=== PATIENT | female | born 1980 | race Caucasian/White ===

== ENCOUNTER 2017-05-09 13:44 | Emergency (ER) | payer MEDICAID ==
[2017-05-09 13:54] VITALS: TEMP 98.9; O2SAT 100
[2017-05-09] MEDS ORDERED: Sodium Chloride 0.9% 1,000 ML IV ONE ×2 (14:17→16:38)
--- NOTE | 2017-05-09 14:22 | C.PDOC ---
History Of Present Illness Patient is a 36 y/o F presenting with 4 day history of suprapubic cramping that started with her menses. She reports that she takes advil with relief of the pain but the pain reoccurs within 4 hours. Denies fever, nausea/vomiting, chest pain, shortness of breath, hematuria, other vaginal discharge, constipation or diarrhea. Reports occasional dysuria. Time Seen by Provider: 05/09/17 14:02 Chief Complaint (Nursing): Abdominal Pain Past Medical History Vital Signs: Last Vital Signs Temp 98.9 F 05/09/17 13:50 Pulse 85 05/09/17 18:03 Resp 16 05/09/17 18:03 BP 108/73 05/09/17 18:03 Pulse Ox 100 05/09/17 18:19 Family History: States: No Known Family Hx - Social History Hx Alcohol Use: No Hx Substance Use: No Review Of Systems Constitutional: Negative for: Fever, Chills Cardiovascular: Negative for: Chest Pain, Palpitations, Edema, Light Headedness Respiratory: Negative for: Cough, Shortness of Breath, SOB with Excertion, Wheezing Gastrointestinal: Negative for: Nausea, Vomiting, Diarrhea, Constipation Genitourinary: Positive for: Dysuria, Vaginal Bleeding, Pelvic Pain. Negative for: Frequency, Incontinence, Vaginal Discharge Musculoskeletal: Negative for: Back Pain Neurological: Negative for: Weakness, Numbness Physical Exam - Physical Exam Appears: Well, Non-toxic, No Acute Distress Skin: Normal Color, Warm, Dry Head: Atraumatic, Normacephalic Eye(s): bilateral: Normal Inspection, PERRL, EOMI Chest: Symmetrical Cardiovascular: Rhythm Regular Respiratory: No Rales, No Rhonchi, No Wheezing Gastrointestinal/Abdominal: Soft, No Tenderness Back: Normal Inspection, No CVA Tenderness Extremity: Normal ROM ED Course And Treatment - Laboratory Results Result Diagrams: 05/09/17 15:01 05/09/17 15:01 O2 Sat by Pulse Oximetry: 100 Medical Decision Making Medical Decision Making: Patient is s/p tubal ligation. UA positive for infection. Upreg negative. Due to persistent pain, CT ordered. FINDINGS: LOWER THORAX: Lung bases clear without infiltrate or effusion. There is no evidence of basilar pneumothorax. Small hiatal hernia. Heart size normal. LIVER: Liver exhibits normal size measuring approximately 13.3 cm in CC dimension. GALLBLADDER AND BILE DUCTS: Gallbladder is physiologically distended. No evidence of intraluminal gallbladder calculi present PANCREAS: Pancreas unremarkable. SPLEEN: Spleen exhibits normal size and attenuation pattern without mass collection or calcification. ADRENALS: There are no adrenal lesions. KIDNEYS AND URETERS: Kidneys demonstrate symmetric size. No evidence of nephrolithiasis or hydronephrosis. BLADDER: Urinary bladder is physiologically distended. No evidence of intraluminal gallbladder calculi. REPRODUCTIVE: Markedly enlarged slightly heterogeneous uterus most consistent with leiomyomatous involvement. (There appears to be at least 1 large discrete fibroid along the left lateral margin of the uterine body that measures approximately 7.1 x 7.1 x 6.65 cm) Consider pelvic ultrasound followup for further evaluation if necessary. There appears to be a small approximately 15.8 mm elliptical shaped cyst right adnexal region. APPENDIX: Normal-appearing appendix best seen on axial image number [id number]. No periappendiceal inflammatory changes. BOWEL: Evaluation of the bowel is limited due to the lack of oral contrast material. Stomach is incompletely distended which presumably accounts for slight thick- walled appearance. Visualized loops of small bowel exhibit normal contour and caliber. No evidence of acute mechanical small bowel obstruction. . Moderate amount of stool seen within the at ascending colon suggesting mild fecal retention. The remaining colon is relatively collapsed. No significant mural wall thickening. PERITONEUM: Unremarkable. No fluid collection. No free air. LYMPH NODES: Unremarkable. No enlarged lymph nodes. VASCULATURE: Unremarkable. No aortic aneurysm. BONES: The osseous structures appear intact. No significant degenerative spondylosis of the lower thoracic/ lumbar spine. OTHER FINDINGS: None. IMPRESSION: Markedly enlarged lobulated heterogeneous uterus consistent with leiomyomatous involvement. There is also small right adnexal cyst. Consider followup pelvic ultrasound for further evaluation if necessary. Sleep do 4:30PM On reevaluation, patient has persistent pain. U/s ordered to r/o torsion 5:57PM U/s shows "Uterine fibroids. The small complex nabothian cyst. Right adnexal cyst measuring 1.9 cm greatest dimension as described." No evidence of torsion. On reevaluation, patient reports pain is resolved. Patient is afebrile with no flank pain and normal wbc and creatinine. 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 Return to ED if condition worsens. Follow- up with OB. Motrin every 6 hours for pain. Prescriptions: Cephalexin [Keflex] 250 mg PO QID #20 capsule traMADol [Ultram] 50 mg PO TID PRN #10 tab PRN Reason: Pain, Severe (8-10) Instructions: Dysfunctional Uterine Bleeding (ED), Uterine Fibroids (ED), Urinary Tract Infection in Women (DC) Forms: [facility] (Khmer), Work Excuse - Clinical Impression Clinical Impression: Painful menstruation, Fibroids, UTI (urinary tract infection)
[2017-05-09 14:42] LABS: RBC URINE 149 /hpf (0-3); URINE BACTERIA RARE (<OCC); URINE BILIRUBIN NEGATIVE (NEGATIVE); URINE BLOOD 3+ (NEGATIVE); URINE COLOR Yellow (YELLOW); URINE GLUCOSE (UA) NORMAL (Normal); URINE KETONE 1+ mg/dL (NEGATIVE); URINE LEUKOCYTE ESTERASE 3+ Leu/uL (Negative); URINE PROTEIN 1+ mg/dL (NEGATIVE); WBC URINE 50 /hpf (0-5)
[2017-05-09 15:06] LABS: BASO % 0.2 % (0.0-2.0); EOS % 0.4 % (0.0-4.0); HEMATOCRIT 36.2 % (34.0-47.0); LYMPH # 1.8 K/uL (1.0-4.3); LYMPH % 19.6 % (20.0-40.0); MEAN CELL VOLUME 88.3 fL (81.0-99.0); MEAN CORPUSCULAR HEMOGLOBIN 30.2 pg (27.0-31.0); MEAN CORPUSCULAR HGB CONC 34.2 g/dL (33.0-37.0); MEAN PLATELET VOLUME 7.4 fL (7.2-11.7); MONO # 0.5 K/uL (0.0-0.8); MONO % 5.5 % (0.0-10.0); RED CELL DISTRIBUTION WIDTH 13.1 % (11.5-14.5); WHITE BLOOD COUNT 9.3 K/uL (4.8-10.8)
[2017-05-09 15:18] LABS: CHLORIDE 98 mmol/L (98-107); POTASSIUM 3.7 mmol/L (3.6-5.2); SODIUM 134 mmol/L (132-148)
[2017-05-09 15:19] LABS: ALB/GLOB RATIO 1.1 (1.0-2.1); ALKALINE PHOSPHATASE 88 U/L (38-126); ALT/SGPT 26 U/L (9-52); AST/SGOT 22 U/L (14-36); BILIRUBIN,TOTAL 0.6 mg/dL (0.2-1.3); BLOOD UREA NITROGEN 7 mg/dL (7-17); CARBON DIOXIDE 24 mmol/L (22-30); GFR AFRICAN-AMERICAN > 60; GLUCOSE,RANDOM 85 mg/dL (65-105); TOTAL PROTEIN 8.3 g/dL (6.3-8.3)
[2017-05-09 15:20] LABS: CALCIUM 8.9 mg/dl (8.6-10.4)
--- NOTE | 2017-05-09 16:25 | CT ---
PROCEDURE: CT abdomen pelvis dated 05/09/2017 HISTORY: Hematuria. COMPARISON: None. TECHNIQUE: Contiguous axial images of the abdomen and pelvis without oral or intravenous contrast material. . Coronal and Sagittal reformats generated. Radiation dose: Total exam DLP = 242.61 mGy-cm. This CT exam was performed using one or more of the following dose reduction techniques: Automated exposure control, adjustment of the mA and/or kV according to patient size, and/or use of iterative reconstruction technique. FINDINGS: LOWER THORAX: Lung bases clear without infiltrate or effusion. There is no evidence of basilar pneumothorax. Small hiatal hernia. Heart size normal. LIVER: Liver exhibits normal size measuring approximately 13.3 cm in CC dimension. GALLBLADDER AND BILE DUCTS: Gallbladder is physiologically distended. No evidence of intraluminal gallbladder calculi present PANCREAS: Pancreas unremarkable. SPLEEN: Spleen exhibits normal size and attenuation pattern without mass collection or calcification. ADRENALS: There are no adrenal lesions. KIDNEYS AND URETERS: Kidneys demonstrate symmetric size. No evidence of nephrolithiasis or hydronephrosis. BLADDER: Urinary bladder is physiologically distended. No evidence of intraluminal gallbladder calculi. REPRODUCTIVE: Markedly enlarged slightly heterogeneous uterus most consistent with leiomyomatous involvement. (There appears to be at least 1 large discrete fibroid along the left lateral margin of the uterine body that measures approximately 7.1 x 7.1 x 6.65 cm) Consider pelvic ultrasound followup for further evaluation if necessary. There appears to be a small approximately 15.8 mm elliptical shaped cyst right adnexal region. APPENDIX: Normal-appearing appendix best seen on axial image number [id number]. No periappendiceal inflammatory changes. BOWEL: Evaluation of the bowel is limited due to the lack of oral contrast material. Stomach is incompletely distended which presumably accounts for slight thick-walled appearance. Visualized loops of small bowel exhibit normal contour and caliber. No evidence of acute mechanical small bowel obstruction. . Moderate amount of stool seen within the at ascending colon suggesting mild fecal retention. The remaining colon is relatively collapsed. No significant mural wall thickening. PERITONEUM: Unremarkable. No fluid collection. No free air. LYMPH NODES: Unremarkable. No enlarged lymph nodes. VASCULATURE: Unremarkable. No aortic aneurysm. BONES: The osseous structures appear intact. No significant degenerative spondylosis of the lower thoracic/ lumbar spine. OTHER FINDINGS: None. IMPRESSION: Markedly enlarged lobulated heterogeneous uterus consistent with leiomyomatous involvement. There is also small right adnexal cyst. Consider followup pelvic ultrasound for further evaluation if necessary. Sleep do
[2017-05-09] MEDS ORDERED: Morphine 4 MG/ML VIAL ONE (16:45)
[2017-05-09 18:04] VITALS: BP 108/73; PULSE 85; RESP 16
--- NOTE | 2017-05-09 18:09 | US ---
PROCEDURE: Pelvic ultrasound dated 05/09/2017. HISTORY: Adnexal cyst, persistent pelvic pain COMPARISON: Correlation made with concurrent CT scan abdomen pelvis. TECHNIQUE: Transabdominal/transvaginal sonographic evaluation of the pelvis performed. FINDINGS: The uterus is bulky/ enlarged and heterogeneous consistent with uterine fibroids. Uterus is anteverted measuring approximately 11.7 by 7.1 x 9.6 cm there are at least 3 discrete fibroids 1 on the right measuring 7.9 cm in greatest dimension 1 in the lower uterine segment measuring approximately 3.42 cm in greatest dimension and the 3rd anteriorly measuring approximately 3 point 1 cm in greatest dimension. There is a complex appearing nabothian cyst measuring approximate 1.5 cm in greatest dimension. The right ovary measures approximately 3.1 x 2.3 x 3.0 cm exhibits arterial flow. There are several cysts the largest measuring 1.9 x 1.5 x 1.9 cm. The left ovary measures 3.0 x 1.6 x 2.3 cm and also exhibits arterial flow. Several follicular cysts are present. IMPRESSION: Uterine fibroids. The small complex nabothian cyst. Right adnexal cyst measuring 1.9 cm greatest dimension as described.
== END 2017-05-09 18:20 | disposition home or self-care (01) ==
LOC: C.ER 13:44
DX: D25.9 Leiomyoma of uterus, unspecified (principal); N94.6 Dysmenorrhea, unspecified; N39.0 Urinary tract infection, site not specified
CPT/HCPCS: 74176; 76830; 76856; 80053; 81001; 85025; 96361; 96374; 96375; 99285; J1885; J2270; J7040